=== PATIENT | male | born 1940 | race Caucasian/White ===

== ENCOUNTER 2016-05-11 03:34 | Emergency (ER) | payer MEDICARE, BC ==
[2016-05-11] MEDS ORDERED: DILAUDID 1 MG/ML AMP ONE (04:08)
== END 2016-05-11 06:46 | disposition home or self-care (01) ==
LOC: ER 03:34
DX: G89.18 Other acute postprocedural pain (principal); M25.512 Pain in left shoulder
CPT/HCPCS: 96372; 99283; J1170

== ENCOUNTER 2016-05-19 23:51 | Emergency (ER) | payer MEDICARE, BC ==
[2016-05-20] MEDS ORDERED: DEXTROSE 50% 50 ML ONE (00:50)
[2016-05-20] MEDS ORDERED: SODIUM CHLORIDE 0.9% 1,000 ML ONE (00:50)
== END 2016-05-20 09:50 | disposition home or self-care (01) ==
LOC: ER 23:51
DX: E11.649 Type 2 diabetes mellitus with hypoglycemia without coma (principal); E11.22 Type 2 diabetes mellitus with diabetic chronic kidney disease; I13.0 Hypertensive heart and chronic kidney disease with heart failure and stage 1 through stage 4 chronic kidney disease, or unspecified chronic kidney disease; N18.9 Chronic kidney disease, unspecified; I50.9 Heart failure, unspecified; Z79.4 Long term (current) use of insulin; Z79.84 Long term (current) use of oral hypoglycemic drugs; E78.00 Pure hypercholesterolemia, unspecified; F03.90 Unspecified dementia, unspecified severity, without behavioral disturbance, psychotic disturbance, mood disturbance, and anxiety; E87.5 Hyperkalemia; I11.0 Hypertensive heart disease with heart failure; I25.10 Atherosclerotic heart disease of native coronary artery without angina pectoris; Z86.711 Personal history of pulmonary embolism; Z95.1 Presence of aortocoronary bypass graft; Z79.899 Other long term (current) drug therapy; Z87.891 Personal history of nicotine dependence
CPT/HCPCS: 36415; 80053; 81003; 82947; 83690; 85025; 96361; 96374